=== PATIENT | male | born 1970 | race Caucasian/White ===

== ENCOUNTER → 2021-09-02 | Outpatient (CLI) | payer OTHER ==
[~2021-09-02] MED LIST: KEFLEX CAP 500500 MG PO; LODINE CAP 300300 MG PO
[2021-09-02 17:40] LABS: HEMOGLOBIN 15.4 gm/dl (14.0-17.5); RED BLOOD COUNT 5.52 M/UL (4.20-5.50); WHITE BLOOD COUNT 11.5 K/UL (4.5-11.0)
[2021-09-02 18:15] LABS: BUN/CREATININE RATIO 21 (0-10)
== END ==
LOC: LAB 16:06
PROVIDERS: Nurse Practitioner Family
DX: R97.20 Elevated prostate specific antigen [PSA] (principal); R68.89 Other general symptoms and signs; R79.89 Other specified abnormal findings of blood chemistry; E78.5 Hyperlipidemia, unspecified; R73.09 Other abnormal glucose; E55.9 Vitamin D deficiency, unspecified
CPT/HCPCS: 36415; 80053; 80061; 83036; 84153; 84443; 85025